=== PATIENT | female | born 1945 | race Two or more races ===

== ENCOUNTER 2016-09-22 06:10 | Day surgery (SDC) | payer MEDICARE ==
--- NOTE | ~2016-09-22 | EGD ---
EGD REPORT [facility] [address] [place]. 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 Estimated blood loss: None. Procedure: Pre-Anesthesia Assessment: - ASA Grade Assessment: III - A patient with severe systemic disease. After obtaining informed consent, the endoscope was passed under direct vision. Throughout the procedure, the patient's blood pressure, pulse, and oxygen saturations were monitored continuously. The GIF [id number] was introduced through the mouth, and advanced to the second part of duodenum. Findings: The esophagus was normal. Few non-bleeding linear gastric ulcers with no stigmata of bleeding were found in the cardia and in the gastric fundus. The largest lesion was 10 mm in largest dimension. The adjacent mucosa appeared abormal and was fibrotic. Biopsies were taken with a cold forceps for histology. Verification of patient identification for the specimen was done. Estimated blood loss was minimal. Biopises also sent for flow cytometry. Patchy mild inflammation characterized by erythema was found in the gastric body and in the gastric antrum. Biopsies were taken with a cold forceps for histology. Verification of patient identification for the specimen was done. Estimated blood loss was minimal. The exam of the stomach was otherwise normal. The cardia and gastric fundus were otherwise normal on retroflexion. The examined duodenum was normal. Impression: - Normal esophagus. - Gastric ulcers with clean base. Biopsied. - Gastritis. Biopsied. - Normal examined duodenum. Recommendation: - Patient has a contact number available for emergencies. The signs and symptoms of potential delayed complications were discussed with the patient. Return to EGD REPORT [address] [id number] [place]. [address] NAME: BRITTANEY HUANG : [birth year] STATUS : REG [facility] [place] PAT#: [id number] AGE: 70 ADM/REG DATE : 09/22/16 MR#: [id number] REPORT SERV DATE: 09/22/16 DICTATED BY: REYNOLD LUCERO DATE: 09/22/16 REPORT STATUS : Draft TRANSCRIBED BY: [employer] DATE: 09/22/16 normal activities tomorrow. Written discharge instructions were provided to the patient. - Return to previous diet. - Continue present medications. - Await pathology results. - Return to referring physician. Procedure Code(s): --- Professional --- 81076, Esophagogastroduodenoscopy, flexible, transoral; with biopsy, single or multiple Diagnosis Code(s): --- Professional --- K25.9, Gastric ulcer, unspecified as acute or chronic, without hemorrhage or perforation K29.70, Gastritis, unspecified, without bleeding CPT copyright 2013 [employer]. All rights reserved. The codes documented in this report are preliminary and upon electrical instrumentation technician review may be revised to meet current compliance requirements. REYNOLD LUCERO, 09/22/2016 8:04 AM Number of Addenda: 0 Note Initiated On: 09/22/2016 7:39 AM Scope Withdrawal Time 0 hours 0 minutes 0 seconds [address] [id number]
[~2016-09-22 06:10] MED LIST: AUG500 PO; [UNRECOGNIZED DRUG - REMARK]; [UNRECOGNIZED DRUG - REMARK] PO
[2016-10-07] MEDS ORDERED: AUG875 PO (11:36)
[2016-10-07] MEDS ORDERED: PROTONIX PO (11:36)
[2016-10-07] MEDS ORDERED: VENTOLIN HFA INH (11:37)
[2016-10-07] MEDS ORDERED: SYN.05 PO (11:40)
== END 2016-09-22 23:59 | disposition home or self-care (01) ==
LOC: DMU 06:10
PROVIDERS: Internal Medicine Gastroenterology
PROC: 0DB68ZX Excision of Stomach, Via Natural or Artificial Opening Endoscopic, Diagnostic (ICD-10-PCS; principal; 2016-09-22 07:00)
DX: C83.33 Diffuse large B-cell lymphoma, intra-abdominal lymph nodes (principal); K29.50 Unspecified chronic gastritis without bleeding; Z79.2 Long term (current) use of antibiotics; Z90.49 Acquired absence of other specified parts of digestive tract; Z98.890 Other specified postprocedural states
CPT/HCPCS: 88305; 88341; 88342; 88360; 88367

== ENCOUNTER 2016-10-12 13:04 | Day surgery (SDC) | payer MEDICARE ==
[2016-10-07 18:01] LABS: BASOPHILS 0.3 %; BASOPHILS ABSOLUTE 0.02 10/3/uL (0.0-0.16); EOSINOPHILS ABSOLUTE 0.12 10/3/uL (0.0-0.53); HEMATOCRIT 36.6 % (36.0-48.0); HEMOGLOBIN 12.2 g/dL (12.0-16.0); IMMATURE GRANULOCYTES 0.2 %; IMMATURE GRANULOCYTES ABSOLUTE 0.01 10/3/uL (0.0-0.11); LYMPHOCYTES 30.1 %; LYMPHOCYTES ABSOLUTE 1.79 10/3/uL (0.67-4.30); MEAN CORPUS HGB CONC 33.3 g/dL (32.0-36.0); MEAN CORPUSCULAR HEMOGLOB 29.9 pg (26.0-34.0); MEAN CORPUSCULAR VOLUME 89.7 fL (80-100); MEAN PLATELET VOLUME 9.8 fL (9.2-13.0); MONOCYTES 6.1 %; MONOCYTES ABSOLUTE 0.36 10/3/uL (0.21-1.20); NEUTROPHILS 61.3 %; NEUTROPHILS ABSOLUTE 3.65 10/3/uL (2.02-8.40); PLATELET COUNT 231 10/3/uL (150-400); RBC DISTRIBUTION WIDTH 12.9 % (12.0-16.0); RED CELL COUNT 4.08 10/6/uL (4.0-5.6)
[2016-10-07 18:02] LABS: MANUAL DIFF NO %
[2016-10-07 18:14] LABS: BUN (BLOOD UREA NITROGEN) 24 MG/DL (6-23); CALCIUM, SERUM 8.6 MG/DL (8.5-10.4); CHLORIDE, SERUM 110 MMOL/L (96-112); CO2 (CARBON DIOXIDE) 30 MMOL/L (24-34); CREATININE 0.69 MG/DL (0.55-1.02); GFR AFRICAN AMERICAN 101 ML/MIN (>=60); GFR NON AFRICAN AMERICAN 87 ML/MIN (>=60); GLUCOSE, SERUM 98 MG/DL (60-99); POTASSIUM, SERUM 4.2 MMOL/L (3.5-5.3); SODIUM, SERUM 143 MMOL/L (135-148)
--- NOTE | ~2016-10-12 | OP ---
Record Of Operation [facility] [address] [place]. [address] NAME: DANIEL MULLINS : [birth year] STATUS : [facility]#: [id number] AGE: 70 ADM/REG DATE : 10/12/16 MR#: [id number] REPORT SERV DATE: 10/19/16 DICTATED BY: KEVIN MONTES DATE: 10/19/16 REPORT STATUS : Draft TRANSCRIBED BY: [employer] DATE: 10/19/16 DATE OF PROCEDURE: 10/12/2016 PREOPERATIVE DIAGNOSIS: Lymphoma, in need of central access for chemotherapy. POSTOPERATIVE DIAGNOSIS: Lymphoma, in need of central access for chemotherapy. PROCEDURE: 1. Right internal jugular vein Port-A-Cath placement. 2. Ultrasound guidance for vascular access. 3. Fluoroscopy with interpretation. ANESTHESIA: MAC and local. ESTIMATED BLOOD LOSS: 5 mL. SPECIMENS: None. COMPLICATIONS: None. BRIEF HISTORY: Ms. Velasquez was referred from Dr. Shrestha with lymphoma. She is in need of a Port-A-Cath for chemotherapy. Procedure with risks including bleeding, infection requiring removal of the port, malfunction, and pneumothorax were all explained. She agreed to proceed. DESCRIPTION OF PROCEDURE: After consent was obtained, she was taken to the operating room and placed in supine position on the operating table. Monitored anesthesia was administered. A shoulder roll was placed. Head was turned to the left and the chest and right neck were prepped and draped in normal sterile fashion. Preoperative antibiotics were administered. SCDs were placed. Time-out was performed. We began by using ultrasound to identify the right internal jugular vein. There were no clots or abnormalities within the vein itself. Local anesthesia was infiltrated in the area and then the vein was cannulated under direct ultrasound guidance using the cannulation needle. There was good return of dark venous blood, and with the removal of the syringe, there was low flow, no pulsatile blood. I placed a wire into the inferior vena cava, confirmed via fluoroscopy, and removed the needle. I then secured the vein to the drape. We then turned our attention to the pocket for the Port-A-Cath. I came beneath the right clavicle and palpated over the top of the rib. We injected local anesthesia into the area. I made a small incision using a #15 blade scalpel and electrocautery was used to dissect down to the pectoralis fascia. We created a pocket and inserted the port to ensure appropriate fit. We then placed local anesthesia along the tract for the catheter. We then tunneled the catheter from the port site up through the cannulation site after making a small incision at the cannulation site over the wire. We placed the obturator and sheath over the wire into the superior vena cava under direct fluoroscopic guidance. The obturator Record Of [facility] [address] [facility] [address] NAME: DANIEL MULLINS : [birth year] STATUS : [facility] PAT#: [id number] AGE: 70 ADM/REG DATE : 10/12/16 MR#: [id number] REPORT SERV DATE: 10/19/16 DICTATED BY: KEVIN MONTES DATE: 10/19/16 REPORT STATUS : Draft TRANSCRIBED BY: JAE DATE: 10/19/16 and wire were then removed. We then placed the catheter through the peel-away sheath and the sheath was peeled away. We used fluoroscopy to appropriately position the tip of the catheter in the superior vena cava just above the right atrium. We then placed our sutures within the pectoralis fascia on either side of the port itself. This was done using a 3-0 Prolene suture. We then cut the catheter to size and attached it to the port and placed the locking mechanism. Port was then placed within the pocket. We then aspirated the Port-A- Cath and aspirated and flushed easily. We then once again got a fluoroscopic image. There was a nice gentle curve on the catheter and the tip was in the superior vena cava. We then tied the Prolene sutures into place and irrigated the cavity. Hemostasis was good. We closed the subcutaneous tissues back with interrupted 0 Vicryl sutures. Skin was closed using a running 4-0 Monocryl subcuticular stitch. A single subcuticular stitch was placed at the cannulation site. The area was cleaned. Benzoin and Steri-Strips were placed and a sterile bandage was applied. The patient tolerated the procedure well, and she was sent to the recovery room in stable condition. BHAVANI/JAE Kevin Montes MD / [id number] CC: MD Malcolm Cruz M.D.
[~2016-10-12 13:04] MED LIST changes: +AUG875 PO; +PROTONIX PO; +SYN.05 PO; +VENTOLIN HFA INH
== END 2016-10-12 18:30 | disposition home or self-care (01) ==
LOC: SDC 13:04
PROVIDERS: Surgery
PROC: 05HM33Z Insertion of Infusion Device into Right Internal Jugular Vein, Percutaneous Approach (ICD-10-PCS; principal; 2016-10-12 14:45)
DX: C85.93 Non-Hodgkin lymphoma, unspecified, intra-abdominal lymph nodes (principal); K21.9 Gastro-esophageal reflux disease without esophagitis; E03.9 Hypothyroidism, unspecified; M19.90 Unspecified osteoarthritis, unspecified site; J45.909 Unspecified asthma, uncomplicated; Z90.49 Acquired absence of other specified parts of digestive tract; Z79.899 Other long term (current) drug therapy; Z98.890 Other specified postprocedural states
CPT/HCPCS: 71010; 77001; 80048; 85025; 93005; A9270-GY; C1751; J0690; J2250; J3010; Q9967